=== PATIENT | male | born 1980 | race Caucasian/White ===

== ENCOUNTER → 2025-05-24 15:17 | Outpatient (REF) | payer BC, SELFPAY | LOC: REG 15:17 | PROVIDERS: ATTENDING PHYSICIAN Orthopaedic Surgery | DX: Z13.89 Encounter for screening for other disorder (principal) | CPT/HCPCS: 70030 ==

== ENCOUNTER → 2025-05-25 16:27 | Outpatient (REF) | payer BC, SELFPAY | LOC: PAVMRI 16:27 | PROVIDERS: ATTENDING PHYSICIAN Orthopaedic Surgery; FAMILY PHYSICIAN Family Medicine | DX: M25.562 Pain in left knee (principal) | CPT/HCPCS: 73721 ==